=== PATIENT | female | born 1990 | race African-American/Black ===

== ENCOUNTER 2016-08-23 16:22 | Emergency (ER) | payer OTHER, MEDICAID ==
[~2016-08-23] VITALS: Ht 160 cm; Wt 74.8 kg
[2016-08-23 16:57] LABS: BILIRUBIN,URINE NEGATIVE (NEG); GLUCOSE,URINE NEGATIVE (NEG); NITRITE,URINE NEGATIVE (NEG); PROTEIN,URINE NEGATIVE (NEG-TRACE); UROBILINOGEN,URINE 0.2 mg/dL (0.2 mg/dL)
--- NOTE | 2016-08-23 16:57 | PHYS DOC ---
Past Medical History Past Medical History: No Pertinent History Past Surgical History: No Surgical History Alcohol Use: Occasionally Drug Use: None Adult General Chief Complaint Chief Complaint: VAGINAL BLEEDING HPI HPI Patient is a 26 year old female presents emergency department stating that she is 6 weeks and 2 days . Patient states that she had seen her CRADLE PLACER yesterday and had a pelvic and abdominal ultrasound done confirming the dates. She states since that time she's been having some abdominal cramping with spotting. She states today she was at the grocery store when she noted the blood coming down her parents. Patient states that she is a 3 para 1 AB 1 Review of Systems Review of Systems Constitutional: Denies fever or chills [] Eyes: Denies change in visual acuity, redness, or eye pain [] HENT: Denies nasal congestion or sore throat [] Respiratory: Denies cough or shortness of breath [] Cardiovascular: No additional information not addressed in HPI [] GI: lower abdominal cramping. Denies nausea, vomiting or diarrhea : Denies dysuria or hematuria. C/o vaginal bleeding Musculoskeletal: Denies back pain or joint pain [] Integument: Denies rash or skin lesions [] Neurologic: Denies headache, focal weakness or sensory changes [] Endocrine: Denies polyuria or polydipsia [] Current Medications Current Medications Current Medications Medications (Trade) Dose Ordered Sig/Bria Start Time Stop Time Status Last Admin Dose Admin Acetaminophen (Tylenol) 650 mg 1X ONCE 08/23/16 17:00 08/23/16 17:01 DC 08/23/16 17:42 650 MG Allergies Allergies Allergies Coded Allergies Type Severity Reaction Last Updated Verified Sulfa (Sulfonamide Antibiotics) Allergy Intermediate 06/06/14 Yes Physical Exam Physical Exam Constitutional: Well developed, well nourished, no acute distress, non-toxic appearance. [] HENT: Normocephalic, atraumatic, bilateral external ears normal, oropharynx moist, no oral exudates, nose normal. [] Eyes: PERRLA, EOMI, conjunctiva normal, no discharge. [] Neck: Normal range of motion, no tenderness, supple, no stridor. [] Cardiovascular:Heart rate regular rhythm, no murmur [] Lungs & Thorax: Bilateral breath sounds clear to auscultation [] Abdomen: Bowel sounds hypoactive, soft, no tenderness, no masses, no pulsatile masses. [] Skin: Warm, dry, no erythema, no rash. [] Back: No tenderness Extremities: No tenderness, no cyanosis, no clubbing, ROM intact, no edema. [] Neurologic: Alert and oriented X 3, normal motor function, normal sensory function, no focal deficits noted. [] Psychologic: Affect normal, judgement normal, mood normal. [] Vaginal exam: Speculum exam patient with a minute amount of blood noted in the vaginal vault. Manual exam no adnexal no CMT cervix appears to be closed. Current Patient Data Vital Signs Vital Signs Date Time Temp Pulse Resp B/P (MAP) Pulse Ox O2 Delivery O2 Flow Rate FiO2 08/23/16 16:40 98.7 101 28 140/77 (98) 100 Room Air 98.7 Lab Values Laboratory Tests Test 08/23/16 16:48 08/23/16 17:10 Urine Color Yellow Urine Clarity Clear Urine pH 7.0 Urine Specific [place] <=1.005 Urine Protein Negative mg/dL (NEG-TRACE) Urine Glucose (UA) Negative mg/dL (NEG) Urine Ketones (Stick) Negative mg/dL (NEG) Urine Blood Large (NEG) Urine Nitrite Negative (NEG) Urine Bilirubin Negative (NEG) Urine Urobilinogen Dipstick 0.2 mg/dL (0.2 mg/dL) Urine Leukocyte Esterase Negative (NEG) Urine RBC 20-40 /HPF (0-2) Urine WBC Occ /HPF (0-4) Urine Squamous Epithelial Cells Occ /LPF Urine Bacteria 0 /HPF (0-FEW) White Blood Count 12.0 x10^3/uL (4.0-11.0) H Red Blood Count 4.56 x10^6/uL (3.50-5.40) Hemoglobin 9.6 g/dL (12.0-15.5) L Hematocrit 30.0 % (36.0-47.0) L Mean Corpuscular Volume 66 fL (79-100) L Mean Corpuscular Hemoglobin 21 pg (25-35) L Mean Corpuscular Hemoglobin Concent 32 g/dL (31-37) Red Cell Distribution Width 21.9 % (11.5-14.5) H Platelet Count 269 x10^3/uL (140-400) Neutrophils (%) (Auto) 70 % (31-73) Lymphocytes (%) (Auto) 21 % (24-48) L Monocytes (%) (Auto) 6 % (0-9) Eosinophils (%) (Auto) 3 % (0-3) Basophils (%) (Auto) 0 % (0-3) Neutrophils # (Auto) 8.4 x10^3uL (1.8-7.7) H Lymphocytes # (Auto) 2.5 x10^3/uL (1.0-4.8) Monocytes # (Auto) 0.8 x10^3/uL (0.0-1.1) Eosinophils # (Auto) 0.3 x10^3/uL (0.0-0.7) Basophils # (Auto) 0.0 x10^3/uL (0.0-0.2) Platelet Estimate Adequate (ADEQUATE) Polychromasia Slight Hypochromasia Mod Anisocytosis Mod Microcytosis Marked Laboratory Tests 08/23/16 17:10 Microbiology 08/23/16 Wet Prep - Final, Complete Laboratory Tests Test 08/23/16 16:48 08/23/16 17:10 Urine Color Yellow Urine Clarity Clear Urine pH 7.0 Urine Specific [place] <=1.005 Urine Protein Negative mg/dL (NEG-TRACE) Urine Glucose (UA) Negative mg/dL (NEG) Urine Ketones (Stick) Negative mg/dL (NEG) Urine Blood Large (NEG) Urine Nitrite Negative (NEG) Urine Bilirubin Negative (NEG) Urine Urobilinogen Dipstick 0.2 mg/dL (0.2 mg/dL) Urine Leukocyte Esterase Negative (NEG) Urine RBC 20-40 /HPF (0-2) Urine WBC Occ /HPF (0-4) Urine Squamous Epithelial Cells Occ /LPF Urine Bacteria 0 /HPF (0-FEW) White Blood Count 12.0 x10^3/uL (4.0-11.0) H Red Blood Count 4.56 x10^6/uL (3.50-5.40) Hemoglobin 9.6 g/dL (12.0-15.5) L Hematocrit 30.0 % (36.0-47.0) L Mean Corpuscular Volume 66 fL (79-100) L Mean Corpuscular Hemoglobin 21 pg (25-35) L Mean Corpuscular Hemoglobin Concent 32 g/dL (31-37) Red Cell Distribution Width 21.9 % (11.5-14.5) H Platelet Count 269 x10^3/uL (140-400) Neutrophils (%) (Auto) 70 % (31-73) Lymphocytes (%) (Auto) 21 % (24-48) L Monocytes (%) (Auto) 6 % (0-9) Eosinophils (%) (Auto) 3 % (0-3) Basophils (%) (Auto) 0 % (0-3) Neutrophils # (Auto) 8.4 x10^3uL (1.8-7.7) H Lymphocytes # (Auto) 2.5 x10^3/uL (1.0-4.8) Monocytes # (Auto) 0.8 x10^3/uL (0.0-1.1) Eosinophils # (Auto) 0.3 x10^3/uL (0.0-0.7) Basophils # (Auto) 0.0 x10^3/uL (0.0-0.2) Platelet Estimate Adequate (ADEQUATE) Polychromasia Slight Hypochromasia Mod Anisocytosis Mod Microcytosis Marked Laboratory Tests 08/23/16 17:10 Microbiology 08/23/16 Wet Prep - Final, Complete EKG EKG [] Radiology/Procedures Radiology/Procedures [][id number] [place] [address] IMAGING REPORT Signed PATIENT: JENS GARIBAY ACCOUNT: [id number] : 1990 LOCATION: ER AGE: 26 SEX: F EXAM STATUS: REG ER ORD. PHYSICIAN: KAVITA POOLE APRN REASON: vaginal bleeding with cramping 6 week PROCEDURE: OB <14 WKS W/TV PROCEDURE Obstetric ultrasound HISTORY female with vaginal bleeding and pelvic pain TECHNIQUE Transabdominal and transvaginal transducers with grayscale and duplex Doppler sonography were utilized COMPARISON No prior FINDINGS Transabdominal imaging demonstrates anteverted uterus measuring 9.8 x 5.6 by 5.9 centimeters. Irregular fluid-filled sac at the lower uterine endometrial canal with a sac diameter of 11 millimeters estimating gestational age 5 weeks 6 days and date of delivery April 19, 2017, no embryo or yolk sac document.. Left ovary measures 2.4 x 2.3 x 4.9 centimeters. Right ovary measures 4.2 x 2.7 x 3.1 centimeters. Transvaginal imaging again demonstrates anteverted uterus. Gestational sac is documented with a pole with crown-rump length 3 millimeters estimating gestational age of 6 weeks 0 days. Estimated date of delivery April 18, 2017 based on crown-rump length. No cardiac activity was documented by the cone sewer with color Doppler sonography and no images of M-mode Doppler sonography are presented. IMPRESSION Single intrauterine gestation with estimated sonographic gestational age of 6 weeks 0 days based on the crown-rump length. No cardiac activity was documented. This may be an early developing intrauterine gestation too early for detectable cardiac activity. demise is not excluded at this time. Followup sonography in 1 week is advised to document development of detectable cardiac activity. Electronically signed by: Maurice Contreras MD (August 23, 2016 18:02:36) DICTATED and SIGNED BY: MAURICE CONTRERAS MD DATE: 08/23/161801 CC: KAVITA POOLE APRN; CLIVE AYALA ~ Course & Med Decision Making Course & Med Decision Making Pertinent Labs and Imaging studies reviewed. (See chart for details) Spoke with patient in regards to Hgb 9.6 patient states that this is really good for her and she has a history of anemia and usually runs around 7-8. Ultrasound was positive for intrauterine although it is early to determine heart tones at this time. He do recommend a follow-up ultrasound in one week. Patient's bacterial vaginosis was positive. Patient's urine was negative. Patient is O+. Patient will be discharged home with recommendations for pelvic rest which means nothing to be inserted into the vaginal area. Patient will be encouraged to drink plenty of fluids. Tylenol for pain and discomfort. Also recommended following up with her CR[facility]LE PLACER in the next 1 -2 days. Also recommended repeat ultrasound in one week. Signs and symptoms to return back to emergency department been provided. Patient agrees with discharge instructions treatment regimens and follow-up recommendations. [] Dragon Disclaimer Dragon Disclaimer This electronic medical record was generated, in whole or in part, using a voice recognition dictation system. Departure Departure Impression: Primary Impression: Bacterial vaginosis Additional Impressions: Vaginal bleeding in patient at less than 20 weeks gestation Threatened in first trimester Disposition: 01 HOME, SELF-CARE Condition: STABLE Referrals: CLIVE AYALA (PCP) Patient Instructions: Bacterial Vaginosis, [id number], Threatened Miscarriage , [id number], Vaginal Bleeding During , [id number] Additional Instructions: Activity as tolerated. Tylenol for pain and discomfort. Medications as prescribed. Pelvic rest: Nothing to be inserted into the vaginal area. Follow-up with your [facility]LE PLACER in the next 2-3 days. Repeat ultrasound in one week. Return to the emergency department sign symptoms become worse. Scripts Metronidazole (FLAGYL) 500 Mg Tablet 1 TAB PO BID, #14 TAB Prov: KAVITA POOLE APRN 08/23/16 Problem Qualifiers KAVITA POOLE APRN August 23, 2016 16:57
[2016-08-23] MEDS ORDERED: ACETAMINOPHEN 325 MG TABLET. PO ONE (17:00)
[2016-08-23 17:05] LABS: BACTERIA,URINE 0 /HPF (0-FEW); RBC,URINE 20-40 /HPF (0-2); WBC,URINE OCC /HPF (0-4)
[2016-08-23 17:06] LABS: SQUAMOUS EPITHELIAL CELL,UR OCC /LPF
[2016-08-23 17:19] LABS: BASO % 0 % (0-3); EOS % 3 % (0-3); HEMOGLOBIN 9.6 g/dL (12.0-15.5); LYMPH # 2.5 x10^3/uL (1.0-4.8); LYMPH % 21 % (24-48); MEAN CORPUSCULAR HEMOGLOBIN 21 pg (25-35); MEAN CORPUSCULAR HGB CONC 32 g/dL (31-37); MEAN CORPUSCULAR VOLUME 66 fL (79-100); MONO % 6 % (0-9); NEUT % 70 % (31-73); PLATELET COUNT 269 x10^3/uL (140-400); RED BLOOD COUNT 4.56 x10^6/uL (3.50-5.40); RED CELL DISTRIBUTION WIDTH 21.9 % (11.5-14.5)
[2016-08-23 17:38] LABS: PLT ESTIMATE ADEQUATE (ADEQUATE)
[2016-08-23 17:39] LABS: ANISOCYTOSIS MOD; HYPOCHROMIA MOD; MICROCYTOSIS MARKED; POLYCHROMASIA SLIGHT
--- NOTE | 2016-08-23 18:03 | RAD ---
PROCEDURE Obstetric ultrasound HISTORY female with vaginal bleeding and pelvic pain TECHNIQUE Transabdominal and transvaginal transducers with grayscale and duplex Doppler sonography were utilized COMPARISON No prior FINDINGS Transabdominal imaging demonstrates anteverted uterus measuring 9.8 x 5.6 by 5.9 centimeters. Irregular fluid-filled sac at the lower uterine endometrial canal with a sac diameter of 11 millimeters estimating gestational age 5 weeks 6 days and date of delivery April 19, 2017, no embryo or yolk sac document.. Left ovary measures 2.4 x 2.3 x 4.9 centimeters. Right ovary measures 4.2 x 2.7 x 3.1 centimeters. Transvaginal imaging again demonstrates anteverted uterus. Gestational sac is documented with a pole with crown-rump length 3 millimeters estimating gestational age of 6 weeks 0 days. Estimated date of delivery April 18, 2017 based on crown-rump length. No cardiac activity was documented by the radio interference trouble shooter with color Doppler sonography and no images of M-mode Doppler sonography are presented. IMPRESSION Single intrauterine gestation with estimated sonographic gestational age of 6 weeks 0 days based on the crown-rump length. No cardiac activity was documented. This may be an early developing intrauterine gestation too early for detectable cardiac activity. demise is not excluded at this time. Followup sonography in 1 week is advised to document development of detectable cardiac activity. Electronically signed by: Andreas Smith MD (August 23, 2016 18:02:36)
[2016-08-23] MEDS ORDERED: METR500T PO (18:31)
[2016-08-23 18:36] VITALS: BP 126/74
== END 2016-08-23 18:45 | disposition home or self-care (01) ==
LOC: ER 16:22
DX: O46.91 Antepartum hemorrhage, unspecified, first trimester (principal); O20.0 Threatened abortion; O23.591 Infection of other part of genital tract in pregnancy, first trimester; N76.0 Acute vaginitis; Z3A.01 Less than 8 weeks gestation of pregnancy; Z88.2 Allergy status to sulfonamides
CPT/HCPCS: 36415; 76801; 76817; 81001; 81025; 85007; 85027; 86900; 86901; 87491; 87591; 99285; Q0111

== ENCOUNTER 2017-08-22 15:53 | Observation (INO) | payer OTHER ==
[2017-08-22] MEDS ORDERED: IV RINGERS,LACTATED 1000ML 1,000 ML IV (16:42)
[2017-08-22 16:51] LABS: BILIRUBIN,URINE NEGATIVE (NEG); CLARITY,URINE CLEAR; COLOR,URINE YELLOW; GLUCOSE,URINE NEGATIVE (NEG); NITRITE,URINE NEGATIVE (NEG); PROTEIN,URINE NEGATIVE (NEG-TRACE); UROBILINOGEN,URINE 0.2 mg/dL (0.2 mg/dL)
[2017-08-22 16:58] LABS: BACTERIA,URINE MODERATE /HPF (0-FEW); RBC,URINE 0 /HPF (0-2); SQUAMOUS EPITHELIAL CELL,UR MANY /LPF
== END 2017-08-22 17:38 | disposition home or self-care (01) ==
LOC: 3 SO LND 15:53
DX: O26.893 Other specified pregnancy related conditions, third trimester (principal); R10.9 Unspecified abdominal pain; Z3A.30 30 weeks gestation of pregnancy
CPT/HCPCS: 81001; 87086; G0378; G0379

== ENCOUNTER 2017-09-23 19:08 | Observation (INO) | payer OTHER ==
[2017-09-23 19:47] LABS: BILIRUBIN,URINE NEGATIVE (NEG); CLARITY,URINE CLEAR; COLOR,URINE YELLOW; GLUCOSE,URINE NEGATIVE (NEG); NITRITE,URINE NEGATIVE (NEG); PROTEIN,URINE NEGATIVE (NEG-TRACE)
[2017-09-23 19:54] LABS: BARBITURATES NEG (NEG); BENZODIAZEPINES NEG (NEG); CANNABINOIDS NEG (NEG); COCAINE NEG (NEG); METHADONE NEG (NEG); OPIATES NEG (NEG); PHENCYCLIDINE NEG (NEG)
[2017-09-23 19:56] LABS: AMPHETAMINE/METHAMPHETAMINE NEG (NEG); ETHANOL, URINE NEG (NEG)
[2017-09-23 19:59] LABS: RBC,URINE OCC /HPF (0-2); WBC,URINE OCC /HPF (0-4)
[2017-09-23 20:00] LABS: BACTERIA,URINE MODERATE /HPF (0-FEW); SQUAMOUS EPITHELIAL CELL,UR MOD /LPF
== END 2017-09-23 20:42 | disposition home or self-care (01) ==
LOC: 3 SO LND 19:08
DX: O36.8130 Decreased fetal movements, third trimester, not applicable or unspecified (principal); Z3A.34 34 weeks gestation of pregnancy
CPT/HCPCS: 59025; 80307; 81001; 87086; G0378; G0379

== ENCOUNTER 2017-10-04 17:32 | Observation (INO) | payer OTHER ==
[2017-10-04 18:07] LABS: BILIRUBIN,URINE NEGATIVE (NEG); CLARITY,URINE CLEAR; COLOR,URINE YELLOW; GLUCOSE,URINE NEGATIVE (NEG); NITRITE,URINE NEGATIVE (NEG); PROTEIN,URINE NEGATIVE (NEG-TRACE); UROBILINOGEN,URINE 0.2 mg/dL (0.2 mg/dL)
[2017-10-04 18:19] LABS: AMNIO PT NEGATIVE
[2017-10-04 18:20] LABS: NEG OBC AMNIO NEG; POS OBC AMNIO POS
[2017-10-04 18:22] LABS: RBC,URINE 0 /HPF (0-2)
[2017-10-04 18:23] LABS: BACTERIA,URINE FEW /HPF (0-FEW); SQUAMOUS EPITHELIAL CELL,UR MANY /LPF
== END 2017-10-04 19:22 | disposition home or self-care (01) ==
LOC: 3 SO LND 17:32
DX: O42.913 Preterm premature rupture of membranes, unspecified as to length of time between rupture and onset of labor, third trimester (principal); O26.893 Other specified pregnancy related conditions, third trimester; R10.9 Unspecified abdominal pain; Z3A.36 36 weeks gestation of pregnancy
CPT/HCPCS: 36415; 81001; 84112; 87086; G0378; G0379

== ENCOUNTER 2017-10-15 19:34 | Observation (INO) | payer OTHER ==
[2017-10-15 20:09] LABS: BILIRUBIN,URINE NEGATIVE (NEG); CLARITY,URINE CLEAR; COLOR,URINE YELLOW; GLUCOSE,URINE NEGATIVE (NEG); NITRITE,URINE NEGATIVE (NEG); PROTEIN,URINE NEGATIVE (NEG-TRACE); UROBILINOGEN,URINE 0.2 mg/dL (0.2 mg/dL)
[2017-10-15 20:27] LABS: BACTERIA,URINE MODERATE /HPF (0-FEW); RBC,URINE 0 /HPF (0-2); SQUAMOUS EPITHELIAL CELL,UR MOD /LPF
[2017-10-15] MEDS ORDERED: 0.9 % SODIUM CHLORIDE 10 ML DISP.SYRIN. IV (20:30)
[2017-10-15] MEDS ORDERED: IV RINGERS,LACTATED 1000ML 1,000 ML IV (20:30)
[2017-10-15] MEDS ORDERED: OXYTOCIN 30 UNIT/500 ML PREMIX 500 ML IV ×2 (20:30)
[2017-10-15] MEDS ORDERED: LIDOCAINE 1% PF 30 ML VIAL. INJ (20:30)
[2017-10-15] MEDS ORDERED: IBUPROFEN 800 MG TABLET. PO (20:30)
[2017-10-15] MEDS ORDERED: ONDANSETRON PF 4 MG/2 ML VIAL. IV (20:30)
[2017-10-15] MEDS ORDERED: TERBUTALINE 1 MG/ML VIAL. SQ (20:30)
[2017-10-15] MEDS ORDERED: AMPICILLIN SODIUM 2 GM in IV NORMAL SALINE 100ML 100 ML IV (20:30)
[2017-10-15] MEDS ORDERED: AMPICILLIN SODIUM 1 GM in IV NORMAL SALINE 50ML 50 ML IV (20:45)
[2017-10-15] MEDS: fentaNYL PF VIAL 100 MCG/2 ML VIAL IV ×2 (20:48→23:25)
[2017-10-15 20:52] LABS: ADD MAN DIFF? NO
[2017-10-15 20:55] LABS: BASO # 0.1 x10^3/uL (0.0-0.2); BASO % 1 % (0-3); EOS # 0.1 x10^3/uL (0.0-0.7); EOS % 1 % (0-3); HEMATOCRIT 32.3 % (36.0-47.0); HEMOGLOBIN 10.5 g/dL (12.0-15.5); LYMPH # 1.7 x10^3/uL (1.0-4.8); LYMPH % 14 % (24-48); MEAN CORPUSCULAR HEMOGLOBIN 25 pg (25-35); MEAN CORPUSCULAR HGB CONC 33 g/dL (31-37); MEAN CORPUSCULAR VOLUME 76 fL (79-100); MONO # 0.9 x10^3/uL (0.0-1.1); MONO % 7 % (0-9); NEUT # 9.3 x10^3uL (1.8-7.7); NEUT % 77 % (31-73); PLATELET COUNT 200 x10^3/uL (140-400); RED BLOOD COUNT 4.26 x10^6/uL (3.50-5.40); RED CELL DISTRIBUTION WIDTH 17.2 % (11.5-14.5); WHITE BLOOD COUNT 12.1 x10^3/uL (4.0-11.0)
[2017-10-15 21:07] LABS: ANION GAP 12 (6-14); BLOOD UREA NITROGEN 6 mg/dL (7-20); BUN/CREATININE RATIO 10 (6-20); CALCIUM 8.6 mg/dL (8.5-10.1); CARBON DIOXIDE 20 mmol/L (21-32); CHLORIDE 105 mmol/L (98-107); CREATININE 0.6 mg/dL (0.6-1.0); GFR 145.1; GLUCOSE 86 mg/dL (70-99); SODIUM 137 mmol/L (136-145)
[2017-10-15] MEDS ORDERED: ROPIVacaine 0.2% IN 0.9%NACL PF 40 MG/20 ML DISP.SYRIN. (21:10)
[2017-10-15] MEDS ORDERED: L&D EPIDURAL SYRINGE 0 ML EP (21:11)
[2017-10-15 21:13] LABS: ALBUMIN 2.6 g/dL (3.4-5.0); ALBUMIN/GLOBULIN RATIO 0.7 (1.0-1.7); ALK PHOS 147 U/L (46-116); ALT (SGPT) 16 U/L (14-59); AST (SGOT) 15 U/L (15-37); TOTAL BILIRUBIN 0.3 mg/dL (0.2-1.0); TOTAL PROTEIN 6.4 g/dL (6.4-8.2)
[2017-10-15] MEDS: AMPICILLIN SODIUM IV Push 2 GM VIAL. IVP (21:28)
[2017-10-15] MEDS: IV RINGERS,LACTATED 1000ML 1,000 ML IV (21:48)
[2017-10-16] MEDS: AMPICILLIN SODIUM IV Push 1 GM VIAL. IVP ×2 (01:01→06:36)
[2017-10-16] MEDS: ACETAMINOPHEN 325 MG TABLET. PO (04:07)
[2017-10-16] MEDS: CALCIUM CARBONATE 500 MG TAB.CHEW PO ×2 (04:54→10:18)
[2017-10-16] MEDS ORDERED: CALCIUM CARBONATE 500 MG TAB.CHEW PO (09:45)
[2017-10-16] MEDS: IV RINGERS,LACTATED 1000ML 1,000 ML IV (10:18)
== END 2017-10-16 19:35 | disposition home or self-care (01) ==
LOC: 3 SO LND 19:34
DX: O62.9 Abnormality of forces of labor, unspecified (principal); Z3A.37 37 weeks gestation of pregnancy; Z79.899 Other long term (current) drug therapy
CPT/HCPCS: 36415; 80053; 81001; 85025; 85027; 86592; 86850; 86900; 86901; 87086; 96361; 96374; 96375; 96376; G0378; G0379; J0290; J3010; J7120

== ENCOUNTER 2017-10-17 17:22 | Inpatient (IN) | payer OTHER ==
[2017-10-17] MEDS ORDERED: CITRIC ACID/SODIUM CITRATE 30 ML SOLUTION. PO (18:00)
[2017-10-17] MEDS ORDERED: IV RINGERS,LACTATED 1000ML 1,000 ML IV (18:00)
[2017-10-17] MEDS ORDERED: fentaNYL PF VIAL 100 MCG/2 ML VIAL IV (18:00)
[2017-10-17] MEDS ORDERED: IBUPROFEN 800 MG TABLET. PO (18:00)
[2017-10-17] MEDS ORDERED: OXYTOCIN 30 UNIT/500 ML PREMIX 500 ML IV (18:00)
[2017-10-17] MEDS ORDERED: TERBUTALINE 1 MG/ML VIAL. SQ (18:00)
[2017-10-17] MEDS ORDERED: 0.9 % SODIUM CHLORIDE 10 ML DISP.SYRIN. IV (18:00)
[2017-10-17] MEDS ORDERED: LIDOCAINE 1% PF 30 ML VIAL. INJ (18:00)
[2017-10-17 18:07] LABS: ADD MAN DIFF? NO
[2017-10-17 18:13] LABS: BASO # 0.1 x10^3/uL (0.0-0.2); BASO % 1 % (0-3); EOS # 0.1 x10^3/uL (0.0-0.7); EOS % 1 % (0-3); HEMATOCRIT 32.4 % (36.0-47.0); HEMOGLOBIN 10.6 g/dL (12.0-15.5); LYMPH # 1.8 x10^3/uL (1.0-4.8); LYMPH % 20 % (24-48); MEAN CORPUSCULAR HEMOGLOBIN 25 pg (25-35); MEAN CORPUSCULAR HGB CONC 33 g/dL (31-37); MEAN CORPUSCULAR VOLUME 75 fL (79-100); MONO # 0.6 x10^3/uL (0.0-1.1); MONO % 7 % (0-9); NEUT # 6.6 x10^3uL (1.8-7.7); NEUT % 72 % (31-73); PLATELET COUNT 200 x10^3/uL (140-400); RED BLOOD COUNT 4.31 x10^6/uL (3.50-5.40); RED CELL DISTRIBUTION WIDTH 17.4 % (11.5-14.5); WHITE BLOOD COUNT 9.1 x10^3/uL (4.0-11.0)
[2017-10-17] MEDS ORDERED: ROPIVacaine 0.2% IN 0.9%NACL PF 40 MG/20 ML DISP.SYRIN. ×2 (18:54→19:00)
[2017-10-17] MEDS ORDERED: L&D EPIDURAL SYRINGE 50 ML EP (18:54)
[2017-10-17] MEDS ORDERED: OXYTOCIN PREMIX 30 UNIT/500 ML BAG. IV (19:00)
[2017-10-17] MEDS ORDERED: L&D EPIDURAL 50 ML SYRINGE. EP (19:00)
[2017-10-17] MEDS ORDERED: NALOXONE 0.4 MG/ML VIAL. IV (19:15)
[2017-10-17] MEDS ORDERED: ROPIVacaine 0.2% IN 0.9%NACL PF 40 MG/20 ML DISP.SYRIN. EPI (19:15)
[2017-10-17] MEDS: IV RINGERS,LACTATED 1000ML 1,000 ML IV (19:46)
[2017-10-17] MEDS ORDERED: LIDOCAINE 2% PF Vial for OR 5 ML VIAL. ×2 (20:57→23:00)
[2017-10-17] MEDS: L&D EPIDURAL SYRINGE 50 ML EP (22:10)
[2017-10-18] MEDS ORDERED: ZOLPIDEM 5 MG TABLET. PO (00:15)
[2017-10-18] MEDS ORDERED: DOCUSATE SODIUM 100 MG CAPSULE. PO (00:15)
[2017-10-18] MEDS ORDERED: 0.9 % SODIUM CHLORIDE 10 ML DISP.SYRIN. IV (00:15)
[2017-10-18] MEDS ORDERED: MAGNESIUM HYDROXIDE 2,400 MG/30 ML ORAL.SUSP. PO (00:15)
[2017-10-18] MEDS ORDERED: MAG HYDROX/ALUMINUM HYD/SIMETH 30 ML ORAL.SUSP PO (00:15)
[2017-10-18] MEDS ORDERED: PHENYLEPH/MINERAL OIL/PETROLAT RECTAL OINTMENT 28GM TUBE. RC (00:15)
[2017-10-18] MEDS ORDERED: BENZOCAINE 20% TOPICAL AEROSOL SPRAY 57GM CAN. TP (00:15)
[2017-10-18] MEDS ORDERED: MMR per PROTOCOL. MC (00:15)
[2017-10-18] MEDS ORDERED: SIMETHICONE 80 MG TAB.CHEW PO (00:15)
[2017-10-18] MEDS ORDERED: oxyCODONE/APAP 5/325 1 TAB TABLET PO (00:15)
[2017-10-18] MEDS ORDERED: OXYTOCIN 30 UNIT/500 ML PREMIX 500 ML IV (00:15)
[2017-10-18] MEDS ORDERED: HYDROCORTISONE 1% TOPICAL OINTMENT 30GM TUBE. TP (00:15)
[2017-10-18] MEDS ORDERED: ACETAMINOPHEN 325 MG TABLET. PO (00:15)
[2017-10-18] MEDS ORDERED: diphenhydrAMINE HCL 25 MG CAPSULE PO (00:15)
[2017-10-18] MEDS: IBUPROFEN 800 MG TABLET. PO (01:49)
[2017-10-19] MEDS: IBUPROFEN 800 MG TABLET. PO (04:06)
[2017-10-19 04:10] LABS: ADD MAN DIFF? NO
[2017-10-19 04:18] LABS: BASO # 0.1 x10^3/uL (0.0-0.2); BASO % 1 % (0-3); EOS # 0.2 x10^3/uL (0.0-0.7); EOS % 2 % (0-3); HEMATOCRIT 30.3 % (36.0-47.0); HEMOGLOBIN 10.1 g/dL (12.0-15.5); LYMPH # 2.7 x10^3/uL (1.0-4.8); LYMPH % 26 % (24-48); MEAN CORPUSCULAR HEMOGLOBIN 25 pg (25-35); MEAN CORPUSCULAR HGB CONC 33 g/dL (31-37); MEAN CORPUSCULAR VOLUME 76 fL (79-100); MONO # 0.7 x10^3/uL (0.0-1.1); MONO % 7 % (0-9); NEUT # 6.8 x10^3uL (1.8-7.7); NEUT % 65 % (31-73); PLATELET COUNT 188 x10^3/uL (140-400); RED BLOOD COUNT 3.99 x10^6/uL (3.50-5.40); RED CELL DISTRIBUTION WIDTH 17.7 % (11.5-14.5); WHITE BLOOD COUNT 10.6 x10^3/uL (4.0-11.0)
[2017-10-19] MEDS ORDERED: FERROUS SULFATE 325 MG TABLET. PO (08:00)
== END 2017-10-19 15:20 | disposition home or self-care (01) | DRG 775 ==
LOC: 3 SO LND 17:22 → 3 NORTH 10-18 01:53
PROVIDERS: Obstetrics & Gynecology
PROC: 10E0XZZ Delivery of Products of Conception, External Approach (ICD-10-PCS; principal; 2017-10-17)
PROC: 00HU33Z Insertion of Infusion Device into Spinal Canal, Percutaneous Approach (ICD-10-PCS; 2017-10-17)
PROC: 3E0R3BZ Introduction of Anesthetic Agent into Spinal Canal, Percutaneous Approach (ICD-10-PCS; 2017-10-17)
DX: O80 Encounter for full-term uncomplicated delivery (principal); Z37.0 Single live birth; Z3A.38 38 weeks gestation of pregnancy
CPT/HCPCS: 36415; 85025; 86592; 86850; 86900; 86901; J2001; J2590; J2795; J7120

== ENCOUNTER 2019-03-05 12:14 | Emergency (ER) | payer OTHER, BC ==
[~2019-03-05] VITALS: Ht 162.6 cm; Wt 77.1 kg
[~2019-03-05 12:14] MED LIST: METR500T PO
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
[2019-03-05 14:38] LABS: BILIRUBIN,URINE NEGATIVE (NEG); CLARITY,URINE CLEAR; COLOR,URINE YELLOW; NITRITE,URINE NEGATIVE (NEG); PROTEIN,URINE NEGATIVE (NEG-TRACE)
[2019-03-05 14:55] LABS: BACTERIA,URINE MANY /HPF (0-FEW); RBC,URINE 0 /HPF (0-2); SQUAMOUS EPITHELIAL CELL,UR MANY /LPF
[2019-03-05 14:59] VITALS: BP 121/68
[2019-03-05] MEDS ORDERED: ACETAMINOPHEN 500 MG TABLET PO ONE (15:15)
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
== END 2019-03-05 15:40 | disposition home or self-care (01) ==
LOC: ER 12:14
DX: O9A.211 Injury, poisoning and certain other consequences of external causes complicating pregnancy, first trimester (principal); R10.32 Left lower quadrant pain; O99.011 Anemia complicating pregnancy, first trimester; Z3A.13 13 weeks gestation of pregnancy; Z88.2 Allergy status to sulfonamides
CPT/HCPCS: 76801; 81001; 81025; 87086; 99285

== ENCOUNTER → 2019-04-17 | Outpatient (CLI) | payer BC ==
--- NOTE | 2019-04-17 16:52 | KCIC ---
Examination: OB > 14 WKS W/TV History: Anatomic assessment and dates Comparison/Correlation: 03/05/2019 OB ultrasound Findings: OB ultrasound exam was performed. Single living intrauterine gestation is present with cephalic lie. Anteriorly located low-lying placenta is present. heart rate is 150 beats minute. anatomy identified include: Cerebellum, lateral ventricles, right, spine, three-vessel cord with insertion, four-chamber heart, nose/lips, face, orbits, facial profile, stomach, upper asymmetry, lower extremities, diaphragm, kidneys, and urinary bladder. Amniotic fluid index is 14 cm which is normal. Biparietal diameter is 4.3 cm corresponding to 19 weeks 0 day. Head circumference is 16.55 cm corresponding to 19 weeks 2 days. Abdominal circumference is 14.41 cm corresponding to 19 weeks 5 days. Femur length is 2.94 cm corresponding to 19 weeks 0 days. Head circumference to abdominal circumference ratio is 1.15 which is normal. Estimated weight is 290 g. Gestational age is 19 weeks 2 days. Ultrasound EDC is 09/09/2019. Maternal cervical length is 5.78 cm. Impression: Single living intrauterine gestation with average ultrasound age 19 weeks 2 days. Adequate interval growth is noted since the prior exam. Unremarkable anatomic survey. Electronically signed by: Darek Mondragon MD (04/17/2019 4:50 PM) [facility]
== END | disposition home or self-care (01) ==
LOC: KCIC US 07:52
PROVIDERS: ATTEND Obstetrics & Gynecology
DX: O44.42 Low lying placenta NOS or without hemorrhage, second trimester (principal); Z3A.19 19 weeks gestation of pregnancy
CPT/HCPCS: 76805; 76817

== ENCOUNTER 2019-05-21 18:43 | Emergency (ER) | payer BC ==
[~2019-05-21] VITALS: Ht 165.1 cm; Wt 80.4 kg
[2019-05-21 19:15] LABS: INFLUENZA A PATIENT NEGATIVE (NEGATIVE); INFLUENZA B PATIENT NEGATIVE (NEGATIVE)
[2019-05-21 19:16] VITALS: BP 137/75
[2019-05-21 19:46] LABS: BILIRUBIN,URINE NEGATIVE (NEG); CLARITY,URINE CLOUDY; COLOR,URINE YELLOW; NITRITE,URINE NEGATIVE (NEG); PROTEIN,URINE NEGATIVE (NEG-TRACE)
[2019-05-21 19:55] LABS: BACTERIA,URINE MANY /HPF (0-FEW); RBC,URINE 0 /HPF (0-2); SQUAMOUS EPITHELIAL CELL,UR MANY /LPF
[2019-05-21] MEDS ORDERED: ONDA4TAB12 PO (20:40)
--- NOTE | 2019-05-21 20:40 | PHYS DOC ---
Past Medical History Past Medical History: Anemia, Other Additional Past Medical Histor: murmur (SHANTE REICH APRN) Past Surgical History: No Surgical History (SHANTE REICH APRN) Smoking Status: Never Smoker Alcohol Use: None Drug Use: None (SHANTE REICH APRN) Attending Signature I have participated in the care of this patient and I have reviewed and agree with all pertinent clinical information above including history, exam, and recom mendations. (JOSIE PIECRE MD) Adult General Chief Complaint Chief Complaint: VOMITING IN HPI HPI Patient is a 28 year old female 5 para 2 currently 24 weeks presenting to the ED today with vomiting, diarrhea and subjective fevers, symptoms began yesterday, was sent by her OB for influenza test. Patient denies any abdominal pain. Denies any vaginal bleeding. (SHANTE REICH APRN) Review of Systems Review of Systems Constitutional: critical subjective fevers Eyes: Denies change in visual acuity, redness, or eye pain [] HENT: Denies nasal congestion or sore throat [] Respiratory: Denies cough or shortness of breath [] Cardiovascular: No additional information not addressed in HPI [] GI: reports vomiting and diarrhea, denies abdominal pain : Denies dysuria or hematuria [] Musculoskeletal: Denies back pain or joint pain [] Integument: Denies rash or skin lesions [] Neurologic: Denies headache, focal weakness or sensory changes [] All other systems were reviewed and found to be within normal limits, except as documented in this note. (SHANTE REICH APRN) Allergies Allergies Allergies Coded Allergies Type Severity Reaction Last Updated Verified Sulfa (Sulfonamide Antibiotics) Allergy Intermediate 06/06/14 Yes (JOSIE PIERCE MD) Physical Exam Physical Exam Constitutional: Well developed, well nourished, no acute distress, non-toxic appearance. [] HENT: Normocephalic, atraumatic, bilateral external ears normal, oropharynx moist, no oral exudates, nose normal. [] Eyes: PERRLA, EOMI, conjunctiva normal, no discharge. [] Neck: Normal range of motion, no tenderness, supple, no stridor. [] Cardiovascular:Heart rate regular rhythm, no murmur [] Lungs & Thorax: Bilateral breath sounds clear to auscultation [] Abdomen: Bowel sounds normal, soft, no tenderness, no masses, no pulsatile masses. [] Skin: Warm, dry, no erythema, no rash. [] Back: No tenderness, no CVA tenderness. [] Extremities: No tenderness, no cyanosis, no clubbing, ROM intact, no edema. [] Neurologic: Alert and oriented X 3, normal motor function, normal sensory function, no focal deficits noted. [] Psychologic: Affect normal, judgement normal, mood normal. [] (SHANTE REICH APRN) Current Patient Data Vital Signs Vital Signs Date Time Temp Pulse Resp B/P (MAP) Pulse Ox O2 Delivery O2 Flow Rate FiO2 05/21/19 19:16 98.3 84 16 137/75 (95) 99 Room Air 98.3 (JOSIE PIERCE MD) Lab Values Laboratory Tests Test 05/21/19 18:51 05/21/19 19:39 Influenza Type A Antigen Negative (NEGATIVE) Influenza Type B Antigen Negative (NEGATIVE) Urine Collection Type Unknown Urine Color Yellow Urine Clarity Cloudy Urine pH 6.0 Urine Specific [place] 1.020 Urine Protein Negative mg/dL (NEG-TRACE) Urine Glucose (UA) Negative mg/dL (NEG) Urine Ketones (Stick) Negative mg/dL (NEG) Urine Blood Negative (NEG) Urine Nitrite Negative (NEG) Urine Bilirubin Negative (NEG) Urine Urobilinogen Dipstick 1.0 mg/dL (0.2 mg/dL) Urine Leukocyte Esterase Negative (NEG) Urine RBC 0 /HPF (0-2) Urine WBC 1-4 /HPF (0-4) Urine Squamous Epithelial Cells Many /LPF Urine Bacteria Many /HPF (0-FEW) Urine Mucus Marked /LPF (JOSIE PIERCE MD) EKG EKG [] (SHANTE REICH APRN) Radiology/Procedures Radiology/Procedures [] (SHANTE REICH APRN) Course & Med Decision Making Course & Med Decision Making Pertinent Labs and Imaging studies reviewed. (See chart for details) This is a 28-year-old female patient currently 24 weeks was sent to the ED to have influenza test because she has nausea vomiting diarrhea and subjective fevers since yesterday. Negative influenza A or B. Urine analysis is negative for infection. We'll be discharged to the OB floor to have her baby checked.Follow-up with her REGULATORY COMPLIANCE DIRECTOR in the course of this week. (SHANTE REICH APRN) Dragon Disclaimer Dragon Disclaimer This electronic medical record was generated, in whole or in part, using a voice recognition dictation system. (SHANTE REICH APRN) Departure Departure Impression: Primary Impression: Vomiting and diarrhea Additional Impression: Fever Disposition: 01 HOME, SELF-CARE Condition: STABLE Referrals: CLIVE AYALA (PCP) ALLY WILCOX Jr, MD Follow-up in the course of this week Patient Instructions: Diarrhea, Nausea and Vomiting Additional Instructions: You were evaluated in the emergency room, your influenza test is negative. Please follow-up with your REGULATORY COMPLIANCE DIRECTOR as soon as you can. Scripts Ondansetron (ONDANSETRON ODT) 4 Mg Tab.rapdis 1 TAB PO PRN Q6-8HRS, #16 TAB Prov: SHANTE REICH APRN 05/21/19 Problem Qualifiers Additional Impression: Fever Fever type: unspecified Qualified Codes: R50.9 - Fever, unspecified SHANTE REICH APRN May 21, 2019 20:40 JOSIE PIERCE MD May 22, 2019 02:47
== END 2019-05-21 20:46 | disposition home or self-care (01) ==
LOC: ER 18:43
DX: O21.2 Late vomiting of pregnancy (principal); R19.7 Diarrhea, unspecified; R50.9 Fever, unspecified; Z88.2 Allergy status to sulfonamides; Z3A.24 24 weeks gestation of pregnancy
CPT/HCPCS: 81001; 87086; 87804; 99284

== ENCOUNTER 2019-05-21 20:51 | Observation (INO) | payer BC ==
[~2019-05-21] VITALS: Ht 165.1 cm; Wt 80.3 kg
[2019-05-21 19:16] VITALS: BP 137/75
[~2019-05-21 20:51] MED LIST changes: +ONDA4TAB12 PO
[2019-05-21] MEDS ORDERED: ACETAMINOPHEN 325 MG TABLET. PO PRN (21:15)
[2019-05-21] MEDS ORDERED: diphenhydrAMINE HCL 25 MG CAPSULE PO PRN (21:15)
[2019-05-21] MEDS ORDERED: ONDANSETRON PF 4 MG/2 ML VIAL. IVP PRN (21:15)
[2019-05-21] MEDS ORDERED: MAG HYDROX/ALUMINUM HYD/SIMETH 30 ML ORAL.SUSP PO PRN (21:15)
[2019-05-21 21:37] LABS: BASO # 0.1 x10^3/uL (0.0-0.2); BASO % 1 % (0-3); EOS # 0.1 x10^3/uL (0.0-0.7); EOS % 1 % (0-3); HEMATOCRIT 35.8 % (36.0-47.0); HEMOGLOBIN 12.1 g/dL (12.0-15.5); LYMPH # 2.2 x10^3/uL (1.0-4.8); LYMPH % 21 % (24-48); MEAN CORPUSCULAR HEMOGLOBIN 29 pg (25-35); MEAN CORPUSCULAR HGB CONC 34 g/dL (31-37); MEAN CORPUSCULAR VOLUME 85 fL (79-100); MONO # 0.6 x10^3/uL (0.0-1.1); MONO % 6 % (0-9); NEUT # 7.6 x10^3/uL (1.8-7.7); NEUT % 72 % (31-73); PLATELET COUNT 202 x10^3/uL (140-400); RED BLOOD COUNT 4.22 x10^6/uL (3.50-5.40); RED CELL DISTRIBUTION WIDTH 14.7 % (11.5-14.5); WHITE BLOOD COUNT 10.6 x10^3/uL (4.0-11.0)
[2019-05-21 21:47] LABS: CALCIUM 8.9 mg/dL (8.5-10.1); CREATININE 0.5 mg/dL (0.6-1.0); GFR 177.8; POTASSIUM 3.5 mmol/L (3.5-5.1)
[2019-05-21 21:52] LABS: ALBUMIN 2.7 g/dL (3.4-5.0); ALBUMIN/GLOBULIN RATIO 0.7 (1.0-1.7); TOTAL BILIRUBIN 0.2 mg/dL (0.2-1.0); TOTAL PROTEIN 6.8 g/dL (6.4-8.2)
[2019-05-21] MEDS: IV RINGERS,LACTATED 1000ML 1,000 ML IV SCH (22:14)
[2019-05-22] MEDS: IV RINGERS,LACTATED 1000ML 1,000 ML IV SCH (04:23)
--- NOTE | 2019-05-22 07:44 | PDOC1 ---
OB - History Hx of Present Care: Good Care Ultrasounds: Abnormal US findings (placenta previa) Obstetrical Complications: Hyperemesis Medical Complications: None Past Family/Social History * Past Medical, Surgical, Family and Obstetric Histories reviewed from chart. Rubella: Immune RPR/VDRL: Negative GBS Status: Unknown HBsAG: Negative OB - Chief Complaint & HPI Date of Admission: Date of Admission: May 21, 2019 at 20:51 Chief Complaint/History : 2 Para: 1 EGA: 25 Reason for admission: observation (Hyperemesis and placenta previa) Admission Nurse Assessment Rev: Yes OB - Admission Exam Physical Exam HEENT: Other (dry mucous membranes) Heart: Regular Rate Lungs: Clear Abdomen: Gravid, Non tender, Soft Extremities: No tenderness or swelling Reflexes: Normal Cervical Dilatation: None Effacement: 0% Station: -3 Membranes: Intact Heart Rate: Normal Accelerations: Accelerations Present Decelerations: No decelerations Contractions on Admission: None Text A: 25 wks IUP Hyperemesis Gravidarum Placenta previa P: Observation for IV hydration and antiemetics. D/c home when tolerating regular diet. ALLY WILCOX Jr, MD May 22, 2019 07:44
== END 2019-05-22 11:34 | disposition home or self-care (01) ==
LOC: 3 SO LND 20:51 → INTOOBSV 20:51
PROVIDERS: ADMIT Obstetrics & Gynecology; ATTEND Obstetrics & Gynecology
DX: O21.0 Mild hyperemesis gravidarum (principal); O44.02 Complete placenta previa NOS or without hemorrhage, second trimester; Z3A.25 25 weeks gestation of pregnancy
CPT/HCPCS: 36415; 80053; 85025; 96361; 96374; G0378; G0379; J2405; J7120

== ENCOUNTER 2019-05-24 16:22 | Observation (INO) | payer BC ==
[2019-05-24] MEDS ORDERED: IV RINGERS,LACTATED 1000ML 1,000 ML IV PRN (16:45)
[2019-05-24 16:55] LABS: BILIRUBIN,URINE NEGATIVE (NEG); CLARITY,URINE CLEAR; COLOR,URINE YELLOW; NITRITE,URINE NEGATIVE (NEG); PROTEIN,URINE NEGATIVE (NEG-TRACE)
[2019-05-24 17:09] LABS: BACTERIA,URINE MANY /HPF (0-FEW); RBC,URINE 0 /HPF (0-2); SQUAMOUS EPITHELIAL CELL,UR MANY /LPF
[2019-05-24 17:13] LABS: AMNIO PT NEGATIVE
== END 2019-05-24 18:05 | disposition home or self-care (01) ==
LOC: 3 SO LND 16:22
PROVIDERS: ADMIT Obstetrics & Gynecology; ATTEND Obstetrics & Gynecology
DX: O42.912 Preterm premature rupture of membranes, unspecified as to length of time between rupture and onset of labor, second trimester (principal); Z3A.25 25 weeks gestation of pregnancy
CPT/HCPCS: 36415; 81001; 84112; 87086; G0378; G0379

== ENCOUNTER → 2019-06-22 | Outpatient (CLI) | payer BC ==
--- NOTE | 2019-06-22 15:24 | KCIC ---
OB ultrasound greater than 14 weeks 06/22/2019 Clinical History: Third trimester . History of placenta previa. Technique: A real-time ultrasound examination of the gravid uterus was performed. Multiple images were obtained. Findings: Comparison study is dated 04/17/2019. There is a single living IUP. The fetus is in a cephalic position. cardiac and somatic activity is seen. The heart rate is 147 beats per minutes. The maternal cervix is closed. It measures 5.72 cm in length. The placenta is in anterior position. The inferior edge of the placenta is 4.92 cm from the internal cervical os. The low-lying placenta/placenta previa seen on the previous examination has resolved. The amniotic fluid volume is within normal limits. Neither maternal ovary is visualized. No adnexal mass is seen. The following measurements were obtained: BPD 7.5cm 30 weeks 1 days HC 26.83 cm 29weeks to days AC 25.27 cm 29weeks 3 days FL 5.51 cm 29 weeks 0 days The estimated gestational age by ultrasound is 29 weeks 3 days plus or minus a standard deviation of 21 days. The estimated date of delivery by ultrasound is 09/04/2019. Since previous examination has been appropriate interval growth. The estimate weight is 1379 g +/- 204 g (3 lbs. 1 oz.). Detailed evaluation of anatomy is somewhat limited due to the advanced age of this gestation. No abnormality is seen. Impression: 1. Single living IUP with an estimated gestational age by ultrasound of 29 weeks 3 days +/- a standard deviation of 21 days days. Since the previous examination there has been appropriate interval growth. 2. Anterior placenta. The low-lying placenta/placenta previa seen on the previous examination has resolved. Electronically signed by: Scott Guidry MD (06/22/2019 3:21 PM) [facility] [place]
== END ==
LOC: KCIC US 09:47
PROVIDERS: ATTEND Obstetrics & Gynecology
DX: O09.93 Supervision of high risk pregnancy, unspecified, third trimester (principal); O44.03 Complete placenta previa NOS or without hemorrhage, third trimester; Z3A.29 29 weeks gestation of pregnancy
CPT/HCPCS: 76815

== ENCOUNTER 2019-08-10 15:59 | Observation (INO) | payer BC ==
[2019-08-10 16:25] LABS: BILIRUBIN,URINE NEGATIVE (NEG); CLARITY,URINE CLEAR; COLOR,URINE YELLOW; NITRITE,URINE NEGATIVE (NEG); PROTEIN,URINE NEGATIVE (NEG-TRACE)
[2019-08-10 16:29] LABS: BACTERIA,URINE FEW /HPF (0-FEW); RBC,URINE 0 /HPF (0-2); SQUAMOUS EPITHELIAL CELL,UR MOD /LPF; WBC,URINE OCC /HPF (0-4)
[2019-08-10] MEDS ORDERED: IV RINGERS,LACTATED 1000ML 1,000 ML IV SCH (16:30)
== END 2019-08-10 17:25 | disposition home or self-care (01) ==
LOC: 3 SO LND 15:59
PROVIDERS: ADMIT Obstetrics & Gynecology; ATTEND Obstetrics & Gynecology
DX: O26.893 Other specified pregnancy related conditions, third trimester (principal); R11.0 Nausea; R51 Headache; Z3A.35 35 weeks gestation of pregnancy
CPT/HCPCS: 81001; G0378; G0379

== ENCOUNTER 2019-08-25 12:44 | Observation (INO) | payer BC ==
[2019-08-25] MEDS ORDERED: IV RINGERS,LACTATED 1000ML 1,000 ML IV SCH (12:47)
[2019-08-25 13:20] LABS: BILIRUBIN,URINE NEGATIVE (NEG); CLARITY,URINE CLOUDY; NITRITE,URINE NEGATIVE (NEG); PROTEIN,URINE NEGATIVE (NEG-TRACE); UROBILINOGEN,URINE 0.2 mg/dL (0.2 mg/dL)
[2019-08-25 13:22] LABS: BACTERIA,URINE MANY /HPF (0-FEW); COLOR,URINE YELLOW; RBC,URINE 0 /HPF (0-2); SQUAMOUS EPITHELIAL CELL,UR MANY /LPF
== END 2019-08-25 13:43 | disposition home or self-care (01) ==
LOC: 3 SO LND 12:44
PROVIDERS: ADMIT Obstetrics & Gynecology; ATTEND Obstetrics & Gynecology
DX: O36.8130 Decreased fetal movements, third trimester, not applicable or unspecified (principal); O62.9 Abnormality of forces of labor, unspecified; Z3A.37 37 weeks gestation of pregnancy; Z79.899 Other long term (current) drug therapy
CPT/HCPCS: 81001; 87086; G0378; G0379; 59025

== ENCOUNTER 2019-09-02 18:47 | Inpatient (IN) | payer BC ==
[~2019-09-02] VITALS: Ht 163.8 cm; Wt 83.9 kg
[2019-09-02] MEDS ORDERED: ACETAMINOPHEN 325 MG TABLET. PO PRN (19:00)
[2019-09-02] MEDS ORDERED: MAG HYDROX/ALUMINUM HYD/SIMETH 30 ML ORAL.SUSP PO PRN (19:00)
[2019-09-02] MEDS ORDERED: 0.9 % SODIUM CHLORIDE 10 ML DISP.SYRIN. IV PRN (19:00)
[2019-09-02] MEDS ORDERED: diphenhydrAMINE HCL 25 MG CAPSULE PO PRN (19:00)
[2019-09-02] MEDS ORDERED: fentaNYL PF VIAL 100 MCG/2 ML VIAL IVP PRN ×2 (19:00)
[2019-09-02] MEDS ORDERED: LIDOCAINE 1% PF 30 ML VIAL. INJ PRN (19:00)
[2019-09-02] MEDS ORDERED: BUTORPHANOL 2 MG/ML VIAL. IVP PRN ×2 (19:00)
[2019-09-02] MEDS ORDERED: OXYTOCIN 30 UNIT/500 ML PREMIX 500 ML IV PRN (19:00)
[2019-09-02] MEDS ORDERED: TERBUTALINE 1 MG/ML VIAL. SQ PRN (19:00)
[2019-09-02] MEDS ORDERED: ONDANSETRON PF 4 MG/2 ML VIAL. IVP PRN (19:00)
[2019-09-02] MEDS ORDERED: DINOPROSTONE 10 MG SUPP.VAG VG ONE (19:00)
[2019-09-02] MEDS: IV RINGERS,LACTATED 1000ML 1,000 ML IV SCH ×2 (19:44→21:56)
[2019-09-02 19:49] LABS: BASO # 0.1 x10^3/uL (0.0-0.2); BASO % 1 % (0-3); EOS # 0.1 x10^3/uL (0.0-0.7); EOS % 1 % (0-3); HEMATOCRIT 31.3 % (36.0-47.0); HEMOGLOBIN 10.5 g/dL (12.0-15.5); LYMPH # 1.8 x10^3/uL (1.0-4.8); LYMPH % 20 % (24-48); MEAN CORPUSCULAR HEMOGLOBIN 27 pg (25-35); MEAN CORPUSCULAR HGB CONC 34 g/dL (31-37); MEAN CORPUSCULAR VOLUME 81 fL (79-100); MONO # 0.6 x10^3/uL (0.0-1.1); MONO % 7 % (0-9); NEUT # 6.6 x10^3/uL (1.8-7.7); NEUT % 72 % (31-73); PLATELET COUNT 189 x10^3/uL (140-400); RED BLOOD COUNT 3.87 x10^6/uL (3.50-5.40); RED CELL DISTRIBUTION WIDTH 15.8 % (11.5-14.5); WHITE BLOOD COUNT 9.1 x10^3/uL (4.0-11.0)
[2019-09-02 19:50] LABS: BILIRUBIN,URINE NEGATIVE (NEG); CLARITY,URINE CLEAR; COLOR,URINE YELLOW; NITRITE,URINE NEGATIVE (NEG); PROTEIN,URINE NEGATIVE (NEG-TRACE); UROBILINOGEN,URINE 0.2 mg/dL (0.2 mg/dL)
[2019-09-02 20:03] LABS: BACTERIA,URINE FEW /HPF (0-FEW); RBC,URINE 0 /HPF (0-2); SQUAMOUS EPITHELIAL CELL,UR MOD /LPF
[2019-09-03] MEDS ORDERED: OXYTOCIN 30 UNIT/500 ML PREMIX 500 ML IV PRN ×2 (06:30→12:30)
[2019-09-03] MEDS: IV RINGERS,LACTATED 1000ML 1,000 ML IV SCH (08:12)
[2019-09-03] MEDS ORDERED: miSOPROStol 200 MCG TABLET PR PRN (10:00)
[2019-09-03] MEDS: fentaNYL PF VIAL 100 MCG/2 ML VIAL IVP PRN ×2 (10:38→11:48)
--- NOTE | 2019-09-03 10:41 | PDOC1 ---
OB - History Hx of Present Care: Good Care Ultrasounds: Normal mid trimester US Obstetrical Complications: None Medical Complications: None Past Family/Social History * Past Medical, Surgical, Family and Obstetric Histories reviewed from chart. Rubella: Immune RPR/VDRL: Negative GBS Status: Negative HBsAG: Negative OB - Chief Complaint & HPI Date of Admission: Date of Admission: September 02, 2019 at 18:47 Chief Complaint/History : 3 Para: 2 EGA: 39 Reason for admission: induction of labor Indication for induction: maternal discomfort Admission Nurse Assessment Rev: Yes OB - Admission Exam Physical Exam Vitals: VS - Last 72 Hours, by Label Date Time Temp Pulse Resp B/P (MAP) Pulse Ox O2 Delivery O2 Flow Rate FiO2 09/03/19 10:38 18 99 Room Air HEENT: Normal Heart: Regular Rate Lungs: Clear Abdomen: Gravid, Non tender, Soft Extremities: Edema Reflexes: Normal Cervical Dilatation: 2cm Effacement: 50% Station: -3 Membranes: Intact Heart Rate: Normal Accelerations: Accelerations Present Decelerations: No decelerations Snf Variability: Absent Text A: 39 wks IUP IOL secondary to maternal discomfort P: Admit IOL cervidil, then pitocin. ALLY WILCOX Jr, MD September 03, 2019 10:41
--- NOTE | 2019-09-03 12:29 | PDOC ---
VAGINAL DELIVERY DATE DATE: 09/03/19 TIME: 12:28 : 3 Para: 3 EGA: 39 VAGINAL DELIVERY: VTX VACCUM ASSISTED: No PLACENTA: Spontaneous 8/9 SEX: Female WEIGHT Weight [6 lbs. 10 oz ] Nuchal Cord: Yes, Times 1 Amniotic Fluid: Clear PAIN: Natural EPISIOTOMY: No EXTENSION: No EBL 300 ml COMPLICATIONS none CONDITION pt. stable Signs of Intrauterine Infectio: None Shoulder Dystocia: No ALLY WILCOX Jr, MD September 03, 2019 12:29
[2019-09-03] MEDS ORDERED: MMR per PROTOCOL. MC PRN (12:30)
[2019-09-03] MEDS ORDERED: DOCUSATE SODIUM 100 MG CAPSULE. PO PRN ×2 (12:30→14:45)
[2019-09-03] MEDS ORDERED: MAGNESIUM HYDROXIDE 2,400 MG/30 ML ORAL.SUSP. PO PRN ×2 (12:30→14:45)
[2019-09-03] MEDS ORDERED: diphenhydrAMINE HCL 25 MG CAPSULE PO PRN ×2 (12:30→14:45)
[2019-09-03] MEDS ORDERED: HYDROCORTISONE 1% TOPICAL OINTMENT 30GM TUBE. TP PRN ×2 (12:30→14:45)
[2019-09-03] MEDS ORDERED: TDaP (Adacel) per PROTOCOL. MC PRN (12:30)
[2019-09-03] MEDS ORDERED: PHENYLEPH/MINERAL OIL/PETROLAT RECTAL OINTMENT TUBE. RC PRN ×2 (12:30→14:45)
[2019-09-03] MEDS ORDERED: ACETAMINOPHEN 325 MG TABLET. PO PRN ×2 (12:30→14:45)
[2019-09-03] MEDS ORDERED: BENZOCAINE 20% TOPICAL AEROSOL SPRAY 57GM CAN. TP PRN ×2 (12:30→14:45)
[2019-09-03] MEDS ORDERED: ZOLPIDEM 5 MG TABLET. PO PRN ×2 (12:30→14:45)
[2019-09-03] MEDS ORDERED: IBUPROFEN 400 MG TABLET. PO PRN (12:30)
[2019-09-03] MEDS ORDERED: SIMETHICONE 80 MG TAB.CHEW PO PRN ×2 (12:30→14:45)
[2019-09-03] MEDS ORDERED: 0.9 % SODIUM CHLORIDE 10 ML DISP.SYRIN. IV PRN ×2 (12:30→14:45)
[2019-09-03] MEDS ORDERED: oxyCODONE/APAP 5/325 1 TAB TABLET PO PRN (12:30)
[2019-09-03] MEDS ORDERED: MAG HYDROX/ALUMINUM HYD/SIMETH 30 ML ORAL.SUSP PO PRN ×2 (12:30→14:45)
[2019-09-03] MEDS: IBUPROFEN 400 MG TABLET. PO PRN (14:01)
[2019-09-03 14:45] VITALS: BP 120/61
[2019-09-03] MEDS ORDERED: HYDROcodone/APAP 5/325MG 1 TAB TABLET PO PRN ×2 (14:45)
[2019-09-03 15:15] VITALS: BP 126/65
[2019-09-03 16:30] VITALS: BP_SYST 126; BP_SYST 138; BP_DIAS 64; BP_DIAS 65
[2019-09-03] MEDS ORDERED: FERROUS SULFATE 325 MG TABLET. PO SCH (17:00)
[2019-09-03 20:15] VITALS: BP 110/75
[2019-09-03] MEDS ORDERED: IBUPROFEN 400 MG TABLET. PO SCH (22:00)
[2019-09-04] VITALS: BP 115/74
[2019-09-04 04:15] VITALS: BP 113/78
[2019-09-04] MEDS: IBUPROFEN 400 MG TABLET. PO PRN ×2 (04:33→11:05)
[2019-09-04 05:30] LABS: BASO # 0.1 x10^3/uL (0.0-0.2); BASO % 1 % (0-3); EOS # 0.2 x10^3/uL (0.0-0.7); EOS % 2 % (0-3); HEMATOCRIT 27.7 % (36.0-47.0); HEMOGLOBIN 9.3 g/dL (12.0-15.5); LYMPH # 2.3 x10^3/uL (1.0-4.8); LYMPH % 22 % (24-48); MEAN CORPUSCULAR HEMOGLOBIN 27 pg (25-35); MEAN CORPUSCULAR HGB CONC 34 g/dL (31-37); MEAN CORPUSCULAR VOLUME 81 fL (79-100); MONO # 0.8 x10^3/uL (0.0-1.1); MONO % 8 % (0-9); NEUT # 7.4 x10^3/uL (1.8-7.7); NEUT % 68 % (31-73); PLATELET COUNT 145 x10^3/uL (140-400); RED BLOOD COUNT 3.42 x10^6/uL (3.50-5.40); WHITE BLOOD COUNT 10.8 x10^3/uL (4.0-11.0)
--- NOTE | 2019-09-04 07:40 | PDOC3 ---
OB DISCHARGE SUMMARY DATE OF ADMISSION: 09/02/19 DATE OF DISCHARGE: 09/04/19 REASON FOR ADMISSION: Induction of labor INTRAPARTUM PROCEDURES: Spontanous Vag Deliv DISCHARGE DIAGNOSIS: Term Delivered DISCHARGE INFORMATION: Activity (ad shannon), Diet (regular), Instructions (pelvic rest x 6 wks) HOSPITAL COURSE Term germ delivered vaginally without complications. ALLY WILCOX Jr, MD September 04, 2019 07:39
[2019-09-04] MEDS ORDERED: IBUP-1027 PO (07:41)
--- NOTE | 2019-09-04 07:41 | DISCH ---
DISCHARGE INSTRUCTIONS Condition on Discharge Condition on Discharge: Stable Activity After Discharge Activity Instructions for Disc: Activity as tolerated Lifting Instructions after Dis: No heavy lifting Driving Instructions after Dis: Do not drive today Diet after Discharge Diet after Discharge: Regular Contacting the DRZackary after DC Call your doctor for: Concerns you may have Follow-Up Follow up with: Dr. Lemon in 6 wks ALLY LEMON Jr, MD September 04, 2019 07:41
[2019-09-04] MEDS ORDERED: MULTIVITAMIN with MINERAL TABLET. PO SCH ×2 (09:00)
[2019-09-04 10:55] VITALS: BP 119/73
[2019-09-04 15:20] VITALS: BP 114/72
--- NOTE | 2019-09-04 15:25 | NUR ---
Discharge Note: Pt. denies questions or needs regarding discharge care instructions. Pt. ambulatory, denies need for wheelchair. Pt. escorted by vehicle by Maria Teresa Bose RN with NB in car seat, belongings, and significant other present. Pt. discharged to home. Maria Teresa Bose RN
== END 2019-09-04 15:25 | disposition home or self-care (01) | DRG 807 ==
LOC: 3 SO LND 18:47
PROVIDERS: ADMIT Obstetrics & Gynecology; ATTEND Obstetrics & Gynecology
PROC: 10E0XZZ Delivery of Products of Conception, External Approach (ICD-10-PCS; principal; 2019-09-03)
DX: O69.1XX0 Labor and delivery complicated by cord around neck, with compression, not applicable or unspecified (principal); Z37.0 Single live birth; Z3A.39 39 weeks gestation of pregnancy; Z88.2 Allergy status to sulfonamides; Z79.899 Other long term (current) drug therapy
CPT/HCPCS: 36415; 81001; 85025; 86592; 86850; 86900; 86901; J2590; J3010; J7120; G0378; Q0163

== ENCOUNTER → 2020-09-23 | Outpatient (CLI) | payer BC ==
[~2020-09-23] MED LIST changes: +IBUP-1027 PO
--- NOTE | 2020-09-23 10:47 | RAD ---
INDICATION: Reason: MENORRHAGIA / Spl. Instructions: / History: COMPARISON: October 2015 TECHNIQUE: Grayscale and color ultrasound images uterus and adnexa. FINDINGS: Uterus: 93 x 65 x 57 mm. 7 mm endometrial stripe. Right Ovary: 37 x 31 x 24 mm. Left Ovary: 32 x 21 x 15 mm. Vascular flow identified to bilateral ovaries. 26 x 16 mm heterogenous masslike structure at the right ovary with echogenic periphery and hypoechoic center. IMPRESSION: * Vascular flow seen to the ovaries. * Right ovarian complex cystic lesion could be from causes such as corpus luteum cyst or hemorrhagic cyst. Higher grade etiology would be uncommon in a patient of this age. Electronically signed by: Bob Brooke MD (09/23/2020 10:44 AM) [id number]
== END ==
LOC: US 12:55
PROVIDERS: ATTEND Obstetrics & Gynecology
DX: N92.0 Excessive and frequent menstruation with regular cycle (principal)
CPT/HCPCS: 76856

== ENCOUNTER → 2020-12-13 | Outpatient (CLI) | payer BC ==
[~2020-12-13] MED LIST changes: +OXYC1TAB15 PO
== END ==
LOC: LAB 10:15
PROVIDERS: ATTEND Obstetrics & Gynecology
DX: Z01.812 Encounter for preprocedural laboratory examination (principal); Z20.822 Contact with and (suspected) exposure to COVID-19
CPT/HCPCS: U0003; U0005

== ENCOUNTER 2020-12-15 06:06 | Observation (INO) | payer BC ==
[~2020-12-15] VITALS: Ht 165.1 cm; Wt 80.0 kg
[2020-12-15] VITALS (12 sets, daily range): BP systolic 115–143; BP diastolic 63–90
[~2020-12-15 06:06] MED LIST changes: +HYDROmorphone 2 MG/ML VIAL IVP PRN; +IV RINGERS,LACTATED 1000ML 1,000 ML IV SCH; -OXYC1TAB15 PO; +PROCHLORPERAZINE 10 MG/2 ML VIAL. IVP PRN; +fentaNYL PF VIAL 100 MCG/2 ML VIAL IVP PRN
[2020-12-15 06:49] LABS: BASO % 0 % (0-3); EOS # 0.3 x10^3/uL (0.0-0.7); EOS % 3 % (0-3); HEMATOCRIT 29.5 % (36.0-47.0); HEMOGLOBIN 9.8 g/dL (12.0-15.5); LYMPH # 2.4 x10^3/uL (1.0-4.8); LYMPH % 29 % (24-48); MEAN CORPUSCULAR HEMOGLOBIN 25 pg (25-35); MEAN CORPUSCULAR HGB CONC 33 g/dL (31-37); MEAN CORPUSCULAR VOLUME 76 fL (79-100); MONO # 0.6 x10^3/uL (0.0-1.1); MONO % 7 % (0-9); NEUT % 61 % (31-73); PLATELET COUNT 269 x10^3/uL (140-400); RED BLOOD COUNT 3.87 x10^6/uL (3.50-5.40); RED CELL DISTRIBUTION WIDTH 15.4 % (11.5-14.5); WHITE BLOOD COUNT 8.3 x10^3/uL (4.0-11.0)
[2020-12-15] MEDS ORDERED: PROPOFOL 10 MG/ML (20ML) VIAL. IV ONE (07:19)
[2020-12-15] MEDS ORDERED: fentaNYL PF VIAL 250 MCG/5 ML VIAL ONE (07:19)
[2020-12-15] MEDS ORDERED: LIDOCAINE 2% PF 5 ML VIAL. ONE (07:19)
[2020-12-15] MEDS ORDERED: LIDOCAINE 1%/EPI 1:100,000 20 ML VIAL. ONE (07:19)
[2020-12-15] MEDS ORDERED: INDIGOTINDISULFONATE SODIUM 40 MG/5 ML AMPUL. ONE (07:19)
[2020-12-15] MEDS ORDERED: MIDAZOLAM HCL/PF 2 MG/2 ML VIAL. ONE (07:19)
[2020-12-15] MEDS ORDERED: ONDANSETRON PF 4 MG/2 ML VIAL. ONE (08:35)
[2020-12-15] MEDS ORDERED: SEVOFLURANE 61 TO 120 MINUTES. IH ONE (08:35)
[2020-12-15] MEDS ORDERED: DEXAMETHASONE SOD PHOS 4 MG/ML VIAL ONE (08:35)
[2020-12-15] MEDS ORDERED: KETOROLAC 30 MG/ML VIAL. ONE (08:58)
[2020-12-15] MEDS ORDERED: diphenhydrAMINE 50 MG/ML VIAL IV PRN (09:15)
[2020-12-15] MEDS ORDERED: SIMETHICONE 80 MG TAB.CHEW PO PRN (09:15)
[2020-12-15] MEDS ORDERED: DEXTROSE 50% 25 GM / 50ML DISP.SYRIN. IV PRN (09:15)
[2020-12-15] MEDS ORDERED: PROCHLORPERAZINE 10 MG/2 ML VIAL. IV PRN (09:15)
[2020-12-15] MEDS ORDERED: diphenhydrAMINE HCL 25 MG CAPSULE PO PRN (09:15)
[2020-12-15] MEDS ORDERED: CALCIUM CARBONATE 500 MG TAB.CHEW PO PRN (09:15)
[2020-12-15] MEDS ORDERED: ONDANSETRON PF 4 MG/2 ML VIAL. IV PRN (09:15)
[2020-12-15] MEDS ORDERED: ZOLPIDEM 5 MG TABLET. PO PRN (09:15)
[2020-12-15] MEDS ORDERED: OPIUM/BELLADONNA 30/16.2MG SUPP.RECT. PR PRN (09:15)
[2020-12-15] MEDS ORDERED: 0.9 % SODIUM CHLORIDE 10 ML DISP.SYRIN. IV PRN (09:15)
--- NOTE | 2020-12-15 09:15 | PDOC ---
BRIEF OPERATIVE NOTE Date: Dec 15, 2020 Pre-Op Diagnosis 1. AUB 2. Dysmenorrhea 3. Menorrhagia Post-Op Diagnosis SAme Procedure Performed [facility] Surgeon Dr. Lemon Captain Assistant Signal Timer: Se Anesthesia Type: General Blood Loss 50 ml Specimens Obtained cervix, uterus, benita. fallopian tubes Findings enlarged uterus, nml fallopian tubes and ovaries benita.. Complications none Operative Note see dictation ALLY LEMON Jr, MD Dec 15, 2020 09:15
[2020-12-15] MEDS ORDERED: fentaNYL PF VIAL 100 MCG/2 ML VIAL ONE (09:29)
[2020-12-15] MEDS: fentaNYL PF VIAL 100 MCG/2 ML VIAL IVP PRN ×2 (09:29→09:45)
--- NOTE | 2020-12-15 09:36 | OP ---
DATE OF SURGERY: 12/15/2020 PREOPERATIVE DIAGNOSES: 1. Abnormal uterine bleeding. 2. Dysmenorrhea. 3. Menorrhagia. POSTOPERATIVE DIAGNOSES: 1. Abnormal uterine bleeding. 2. Dysmenorrhea. 3. Menorrhagia. PROCEDURE: Transvaginal hysterectomy. SURGEON: Jonn Lemon MD SUPERVISOR PHOSPHORUS PROCESSING: Se. ANESTHESIA: GETA. ESTIMATED BLOOD LOSS: 50 mL COMPLICATIONS: None. FINDINGS: Enlarged uterus, normal fallopian tubes and ovaries bilaterally. SUMMARY: A 30-year-old female, unresponsive to medical treatment for abnormal uterine bleeding, dysmenorrhea and menorrhagia, requiring vaginal hysterectomy. She was counseled on the risks, benefits and expectations and voiced clear understanding to proceed. DESCRIPTION OF PROCEDURE: The patient was taken to surgery suite and placed in dorsal lithotomy position, was prepped with Betadine solution for vaginal prep and draped in a sterile fashion. After adequate anesthesia, weighted speculum and curved Mata placed vaginally. The anterior and posterior lip of the cervix grasped with Vicenta clamps. A 1% lidocaine with epinephrine was injected in a circumferential manner. Bovie cautery was utilized to circumscribe the cervix. The vaginal mucosa was dissected away from the lower uterine segment using moist Ray-Jose. Parametrial tissue was clamped bilaterally with curved Ann clamps, cut and suture ligated with 2-0 Vicryl suture. Posterior cul-de-sac was entered sharply with curved Lowe scissors. A long weighted speculum was then placed. The uterosacral ligaments were clamped bilaterally, cut and suture ligated. Cardinal ligaments were then clamped bilaterally, cut and suture ligated. We then entered the anterior cul-de-sac and sharp dissection with Metzenbaum scissors. Curved [place] was then repositioned. The uterus was then retroverted. The round ligament, uteroovarian pedicles were clamped bilaterally, cut and suture ligated. The fallopian tubes were isolated bilaterally and retracted with [place] retractors. A curved Ann clamp was placed. Both fallopian tubes were excised using the Metzenbaum scissors. A 2-0 Vicryl suture was placed for hemostasis purposes bilaterally. The pedicles were all reviewed and hemostatic. A modified Carter's culdoplasty was performed with 0 Vicryl suture incorporating uterosacral ligaments bilaterally. The remainder of the vaginal cuff was reapproximated using 2-0 Vicryl suture in a [id number] manner. Moist vaginal packing was placed. A Izquierdo catheter was placed, which elicited clear yellow urine. The patient tolerated the procedure well and was sent to recovery room in stable condition. Sponge and needle count correct x 3. TAYE/KENDRICK DR: TAYE/louisa TID: [id number]
[2020-12-15] MEDS ORDERED: MORPHINE SULFATE 2 MG/ML INJ. ONE (09:58)
[2020-12-15] MEDS: MORPHINE SULFATE 2 MG/ML INJ. IVP PRN ×2 (10:04→10:18)
[2020-12-15] MEDS ORDERED: fentaNYL PF VIAL 100 MCG/2 ML VIAL IV ONE (11:00)
--- NOTE | 2020-12-15 13:30 | NUR ---
Pt continues to complain of cramping in lower abd, vag packing removed. Scant rubra on packing.
[2020-12-15] MEDS: oxyCODONE/APAP 5/325 1 TAB TABLET PO PRN ×2 (13:31→19:07)
[2020-12-15] MEDS: GABAPENTIN 300 MG CAPSULE. PO SCH ×2 (14:32→21:38)
[2020-12-15] MEDS: KETOROLAC 30 MG/ML VIAL. IV PRN ×2 (14:50→21:38)
[2020-12-16 05:33] VITALS: BP 113/63
[2020-12-16] MEDS: GABAPENTIN 300 MG CAPSULE. PO SCH (05:36)
[2020-12-16] MEDS: KETOROLAC 30 MG/ML VIAL. IV PRN (05:37)
[2020-12-16 07:41] VITALS: BP 117/79
--- NOTE | 2020-12-16 08:17 | PDOC ---
SURGICAL PROGRESS NOTE DATE: 12/16/20 TIME: 08:15 Subjective Pt. feeling well. Pain controlled. Pt. tolerating diet, ambulating and voiding without difficulty. Vital Signs Vital Signs Date Time Temp Pulse Resp B/P (MAP) Pulse Ox O2 Delivery O2 Flow Rate FiO2 12/16/20 07:41 98.2 77 18 117/79 (92) 98 Room Air 98.2 12/15/20 09:42 8 I&O Intake and Output 12/16/20 07:00 Intake Total 1650 ml Output Total 4750 ml Balance -3100 ml Intake IV Total 1650 ml Output Urine Total 4700 ml Estimated Blood Loss 50 ml PATIENT HAS A BANKS: No General: Alert, Oriented X3, Cooperative HEENT: Atraumatic Lungs: Clear to auscultation Heart: Regular rate Abdomen: Normal bowel sounds, Soft, No tenderness, No masses Psych/Mental Status: Mental status NL Labs Laboratory Tests Test 12/15/20 05:40 12/15/20 06:30 Bedside Urine HCG, Qualitative Hcg negative (Negative) White Blood Count 8.3 x10^3/uL (4.0-11.0) Red Blood Count 3.87 x10^6/uL (3.50-5.40) Hemoglobin 9.8 g/dL (12.0-15.5) Hematocrit 29.5 % (36.0-47.0) Mean Corpuscular Volume 76 fL (79-100) Mean Corpuscular Hemoglobin 25 pg (25-35) Mean Corpuscular Hemoglobin Concent 33 g/dL (31-37) Red Cell Distribution Width 15.4 % (11.5-14.5) Platelet Count 269 x10^3/uL (140-400) Neutrophils (%) (Auto) 61 % (31-73) Lymphocytes (%) (Auto) 29 % (24-48) Monocytes (%) (Auto) 7 % (0-9) Eosinophils (%) (Auto) 3 % (0-3) Basophils (%) (Auto) 0 % (0-3) Neutrophils # (Auto) 5.0 x10^3/uL (1.8-7.7) Lymphocytes # (Auto) 2.4 x10^3/uL (1.0-4.8) Monocytes # (Auto) 0.6 x10^3/uL (0.0-1.1) Eosinophils # (Auto) 0.3 x10^3/uL (0.0-0.7) Basophils # (Auto) 0.0 x10^3/uL (0.0-0.2) Assessment/Plan A: POD#1 s/p [facility] P: D/c home. Justicifation of Admission Dx: Justifications for Admission: Justification of Admission Dx: Yes ALLY WILCOX Jr, MD Dec 16, 2020 08:17
[2020-12-16] MEDS ORDERED: OXYC1TAB15 PO (08:20)
--- NOTE | 2020-12-16 08:21 | DISCH ---
DISCHARGE INSTRUCTIONS Condition on Discharge Condition on Discharge: Stable Activity After Discharge Activity Instructions for Disc: Activity as tolerated Lifting Instructions after Dis: No heavy lifting Driving Instructions after Dis: No driving for 2 weeks Diet after Discharge Diet after Discharge: Regular Contacting the DRZackary after DC Call your doctor for: Concerns you may have Follow-Up Follow up with: Dr. Lemon in 2 wks ALLY LEMON Jr, MD Dec 16, 2020 08:21
[2020-12-16 08:46] LABS: BASO # 0.1 x10^3/uL (0.0-0.2); BASO % 1 % (0-3); EOS % 0 % (0-3); HEMATOCRIT 28.6 % (36.0-47.0); HEMOGLOBIN 9.4 g/dL (12.0-15.5); LYMPH # 2.4 x10^3/uL (1.0-4.8); LYMPH % 22 % (24-48); MEAN CORPUSCULAR HEMOGLOBIN 25 pg (25-35); MEAN CORPUSCULAR HGB CONC 33 g/dL (31-37); MEAN CORPUSCULAR VOLUME 76 fL (79-100); MONO # 0.8 x10^3/uL (0.0-1.1); MONO % 8 % (0-9); NEUT # 7.7 x10^3/uL (1.8-7.7); NEUT % 70 % (31-73); PLATELET COUNT 247 x10^3/uL (140-400); RED BLOOD COUNT 3.78 x10^6/uL (3.50-5.40); RED CELL DISTRIBUTION WIDTH 15.2 % (11.5-14.5)
[2020-12-16] MEDS: oxyCODONE/APAP 5/325 1 TAB TABLET PO PRN (09:37)
[2020-12-16 09:45] VITALS: BP 120/58
--- NOTE | 2020-12-20 17:06 | PATHOLOGY ---
[facility] Accession Number: [id number] . 01 Material submitted: . PART A: uterus - CERVIX AND UTERUS PART B: fallopian tube - RIGHT FALLOPIAN TUBE. Modifiers: right PART C: fallopian tube - LEFT FALLOPIAN TUBE. Modifiers: left . 01 Clinical history: . ABDOMINAL UTERINE BLEEDING TRANSVAGINAL/HYSTERECTOMY . 02 Diagnosis: A. Uterus, transvaginal hysterectomy: - Adenomyosis, uterine corpus, focal, with mild myometrial hypertrophy (uterine weight 149 gram). - Chronic cervicitis with focal squamous metaplasia. - Nabothian cysts, cervix. - Early secretory endometrium. . B. Right salpingectomy: - Segment of fallopian tube confirmed, with subserosal cystic [place] rests. . C. Left salpingectomy: - Segment of fallopian tube confirmed. (JPM:estephania; 12/20/2020) [facility] 12/20/2020 0853 Local . 02 Electronically signed: . William Rodriguez MD, Pathologist NPI- [id number] . 01 Gross description: . A. Fixative: Formalin Labeled: Cervix and uterus Specimen received: A previously opened uterus with attached cervix without bilateral adnexa Uterus weight: 149 g Uterus: 10.5 cm from fundus to cervix, 6.4 cm from cornu to cornu, and 5.5 cm from anterior to posterior Serosa: [place] and smooth Ectocervix: White, smooth and glistening Cervical os: Slitlike, measuring 1.2 cm Endocervical canal: 4.0 x 1.5 cm Endometrial cavity: 4.0 x 2.2 cm Endometrial thickness: 0.2 cm Myometrial thickness: 2.4 cm Lesions/abnormalities: A smooth-walled, mucus filled cyst is identified within the posterior cervix. A white, rubbery and whorled nodule is identified within the posterior myometrium measuring 0.5 x 0.4 x 0.3 cm . Legislative Analyst sections are submitted as follows: A1 anterior cervix at 12:00 A2 posterior cervix at 5:00 A3 anterior endomyometrium A4 posterior endomyometrium with nodule . B. The specimen is received in formalin, labeled "Cervantes, Disa S, right fallopian tube". It consists of a fimbriated fallopian tube measuring 4.5 cm long by 0.6 cm in diameter. The serosa appears [place], focally disrupted, with multiple smooth-walled, serous fluid filled cysts averaging 0.1 cm. Sectioning reveals an unremarkable lumen with a 0.1 cm wall thickness. Legislative Analyst sections are submitted in B1. . C. The specimen is received in formalin, labeled "Cervantes, Disa S, left fallopian tube". It consists of a fimbriated fallopian tube measuring 2.6 cm long by 0.5 cm in diameter. The serosa appears de [place] sant[place] and smooth. Sectioning reveals an unremarkable lumen with a 0.1 cm wall thickness. Legislative Analyst sections are submitted in C1. (MRF; 12/15/2020) MFE/MFE 12/20/2020 0854 Local . 02 Pathologist provided ICD-10: N80.0, N72, N88.8, N93.9 . 02 CPT . 690069 Specimen Comment: A courtesy copy of this report has been sent to [phone], [phone] Specimen Comment: [id number] Specimen Comment: Report sent to / DR HERNANDEZ [facility]formed at: [facility] [address], [place] [id number] MD Jayson Oliva MD Phone: [phone] [facility]formed at: [facility] [address], [place] [id number] MD William Rodriguez MD Phone: [phone]
== END 2020-12-16 10:25 | disposition home or self-care (01) ==
LOC: SURG 06:06 → 3 SO LND 09:15
PROVIDERS: ADMIT Obstetrics & Gynecology; ATTEND Obstetrics & Gynecology
DX: N92.0 Excessive and frequent menstruation with regular cycle (principal); N93.9 Abnormal uterine and vaginal bleeding, unspecified; N94.6 Dysmenorrhea, unspecified; N85.2 Hypertrophy of uterus
CPT/HCPCS: 36415; 58260; 81025; 85025; 86850; 86900; 86901; 88307; 96374; 96375; 96376; A4314; A4930; G0378; J0690; J1100; J1885; J2250; J2270; J2405; J2704; J3010; J3490; G0379